=== PATIENT | female | born 1980 | race Caucasian/White ===

== ENCOUNTER 2021-04-30 10:43 | Outpatient (CLI) | payer OTHER | END 2021-04-30 10:44 | disposition home or self-care (01) | LOC: CSHULT 10:43 | PROVIDERS: ATTEND Urology | DX: N20.0 Calculus of kidney (principal); R10.9 Unspecified abdominal pain; R35.0 Frequency of micturition; E03.9 Hypothyroidism, unspecified; E04.2 Nontoxic multinodular goiter | CPT/HCPCS: 74018; 76536; 76770 ==